=== PATIENT | female | born 1960 | race Caucasian/White ===

== ENCOUNTER 2021-12-02 18:46 | Emergency (ER) | payer OTHER ==
[~2021-12-02 18:46] MED LIST: 8 HOUR650 MG PO; AMARYL1 MG PO; BACLOFEN 10MG T10 MG PO; KETOROLAC TROME10 MG PO; LIPITOR 10MG TA10 MG PO; MEDROL 4MG DOSEP4 MG PO; METFORMIN HCL500 MG PO; NORCO 5-325 TA1 EACH PO; VITAMIN D1000 UNIT PO; ZOFRAN4 MG PO
[2021-12-02] MEDS ORDERED: NORCO 5-325 TA1 EACH PO (21:26)
[2021-12-02] MEDS ORDERED: CYCLOBENZAPRINE10 MG PO (21:26)
[2021-12-02] MEDS ORDERED: PREDNISONE 20MG20 MG PO (21:28)
== END 2021-12-02 21:49 | disposition home or self-care (01) ==
LOC: FER 18:46
DX: M79.672 Pain in left foot (principal); M54.9 Dorsalgia, unspecified; G89.29 Other chronic pain; E11.9 Type 2 diabetes mellitus without complications; Z28.310 Unvaccinated for COVID-19; Z79.84 Long term (current) use of oral hypoglycemic drugs; W19.XXXA Unspecified fall, initial encounter; Y92.009 Unspecified place in unspecified non-institutional (private) residence as the place of occurrence of the external cause
CPT/HCPCS: 73630